=== PATIENT | female | born 1985 | race Caucasian/White ===

== ENCOUNTER 2017-10-04 02:25 | Inpatient (IN) | payer MEDICAID ==
[2017-10-04] VITALS (10 sets, daily range): BP systolic 98–112; BP diastolic 56–69; PULSE 75–99; RESP 16; TEMP 97.9–99.9; O2SAT 98–100
[~2017-10-04 02:25] MED LIST: APIX5TAB PO; METF500T PO; METO25TA3 PO; OMEP40CA2 PO; SERT-129 PO
[2017-10-04] MEDS ORDERED: SODIUM CHLOR 0.9% 250 ML INJ 250 ML IV ONE (03:15)
[2017-10-04] MEDS ORDERED: LACTULOSE SYRUP 20 GM/30 ML CUP PO PRN (03:15)
[2017-10-04] MEDS ORDERED: MAGNESIUM HYDROXIDE SUSP 30 ML CUP PO PRN (03:15)
[2017-10-04] MEDS ORDERED: BISACODYL 10 MG SUPP RECTAL PRN (03:15)
[2017-10-04] MEDS ORDERED: NALOXONE HCL 0.4 MG/ML AMP IV PUSH PRN (03:15)
[2017-10-04] MEDS ORDERED: SENNOSIDES 8.6 MG TAB PO PRN (03:15)
[2017-10-04] MEDS ORDERED: SODIUM CHLORIDE 0.9% FLUSH 10 ML FLUSH IV FLUSH PRN (03:15)
[2017-10-04] MEDS ORDERED: ACETAMINOPHEN 325 MG TAB PO PRN (03:15)
[2017-10-04] MEDS ORDERED: ONDANSETRON ODT 4 MG TAB PO PRN (03:15)
[2017-10-04] MEDS ORDERED: DEXTROSE 50% IN WATER 50 ML VIAL(D50) IV PUSH PRN (03:30)
[2017-10-04] MEDS ORDERED: GLUCAGON 1 MG/ML VIAL OTHER PRN (03:30)
[2017-10-04] MEDS: ACETAMINOPHEN/HYDROcodone 325 MG/5 MG TAB PO PRN ×4 (03:49→20:10)
--- NOTE | 2017-10-04 04:09 | HHI.HP ---
HPI Service [facility] Primary Care Physician Luis Jaeger D.O. Admission Diagnosis Diagnoses: Chief Complaint: anemia Travel History International Travel<30 Days: No Contact w/Intl Traveler <30 Da: No History of Present Illness 32 y/o female with a history of anemia, anxiety, depression, pcos, pe (on eliquis), and irregular heart rate presented with anemia with blood clots since September 10. Patient states on September 10 she was diagnosed with bilateral PEs and was placed on Eliquis. She states at this time she also began her menstrual cycle and has continued to pass large clots. She last seen her lithographic plate maker on Thursday and received an iron transfusion for hgb of 9. She was seen by a cheesemaking laborer 2 weeks ago who started her on depo provera to help the bleeding, but she states there has been no change. She is complaining of associated shortness of breath at times, and cramping abdominal pain when she passes the clots. Denies any chest pain. Last pap was in May and she reports normal, denies any history of uterine fibroids. Both lithographic plate maker and cheesemaking laborer physicians are in [place]. DR. Olsen: [place] oncology Dr. Kiser PERSONAL CARE ATTENDANT Review of Systems Except as stated in HPI: all other systems reviewed are Neg Past Family Social History Past Medical History iron deficiency anemia PCOS irregular heart rate anxiety Depression Past Surgical History Tubal R 5th digit tendon repair C section x 2 Reported Medications Reported Meds & Active Scripts Active Reported Metoprolol Tartrate 25 Mg Tab 12.5 Mg PO BID Sertraline (Sertraline HCl) 100 Mg Tab 100 Mg PO DAILY Omeprazole 40 Mg Cap 40 Mg PO DAILY Metformin (Metformin HCl) 500 Mg Tab 500 Mg PO DAILY With a meal Eliquis (Apixaban) 5 Mg Tab 5 Mg PO BID Allergies: Coded Allergies: No Known Allergies (Unverified , 10/04/17) Active Ordered Medications Current Medications Medications (Trade) Dose Ordered Sig/Sharath Route Start Time Stop Time Status Last Admin (NS Flush) 2 ml UNSCH PRN IV FLUSH 10/04/17 03:15 (NS Flush) 2 ml BID IV FLUSH 10/04/17 09:00 (Tylenol) 650 mg Q4H PRN PO 10/04/17 03:15 (Zofran Odt) 4 mg Q6H PRN PO 10/04/17 03:15 (Narcan Inj) 0.4 mg UNSCH PRN IV PUSH 10/04/17 03:15 (Milk Of Magnesia Liq) 30 ml Q12H PRN PO 10/04/17 03:15 (Senokot) 17.2 mg Q12H PRN PO 10/04/17 03:15 (Dulcolax Supp) 10 mg DAILY PRN RECTAL 10/04/17 03:15 (Lactulose Liq) 30 ml DAILY PRN PO 10/04/17 03:15 Sodium Chloride 250 ml @ 15 mls/hr ONCE ONCE IV 10/04/17 03:15 10/04/17 19:54 ([place] 5-325 Mg) 1 tab Q4H PRN PO 10/04/17 03:15 10/04/17 03:49 (D50w (Vial) Inj) 50 ml UNSCH PRN IV PUSH 10/04/17 03:30 (Glucagon Inj) 1 mg UNSCH PRN OTHER 10/04/17 03:30 (NovoLOG SUPPLEMENTAL SCALE) 1 ACHS SLIDING SCALE SQ 10/04/17 08:00 Family History Grandma: Leukemia Social History Tobacco use: 1/2 PPD Alcohol use: occasionally Physical Exam Physical Exam GENERAL: This is a well-nourished, well-developed patient, in no apparent distress. SKIN: No rashes, ecchymoses or lesions. Cool and dry. HEAD: Atraumatic. Normocephalic. EYES: Pupils equal round and reactive. . CARDIOVASCULAR: Regular rate and rhythm without murmurs, gallops, or rubs. RESPIRATORY: Clear to auscultation. Breath sounds equal bilaterally. No wheezes , rales, or rhonchi. GASTROINTESTINAL: Abdomen soft, tender, nondistended. MUSCULOSKELETAL: Extremities without clubbing, cyanosis, or edema. No joint tenderness, effusion, or edema noted. NEUROLOGICAL: Awake and alert. Motor and sensory grossly within normal limits.Normal speech. Caprini VTE Risk Assessment Caprini VTE Risk Assessment: Mod/High Risk (score >= 2) Caprini Risk Assessment Model Point Value = 1 Point Value = 2 Point Value = 3 Point Value = 5 Age 41-60 Minor surgery BMI > 25 kg/m2 Swollen legs Varicose veins or History of unexplained or recurrent spontaneous Oral contraceptives or hormone replacement Sepsis (< 1 month) Serious lung disease, including pneumonia (< 1 month) Abnormal pulmonary function Acute myocardial infarction Congestive heart failure (< 1 month) History of inflammatory bowel disease Medical patient at bed rest Age 61-74 Arthroscopic surgery Major open surgery (> 45 min) Laparoscopic surgery (> 45 min) Malignancy Confined to bed (> 72 hours) Immobilizing plaster cast Central venous access Age >= 75 History of VTE Family history of VTE Factor V Leiden Prothrombin [id number] Lupus anticoagulant Anticardiolipin antibodies Elevated serum homocysteine Heparin-induced thrombocytopenia Other congenital or acquired thrombophilia Stroke (< 1 month) Elective arthroplasty Hip, pelvis, or leg fracture Acute spinal cord injury (< 1 month) Prophylaxis Regimen Total Risk Factor Score Risk Level Prophylaxis Regimen 0-1 Low Early ambulation 2 Moderate Order ONE of the following: *Sequential Compression Device (SCD) *Heparin 5000 units SQ BID 3-4 Higher Order ONE of the following medications: *Heparin 5000 units SQ TID *Enoxaparin/Lovenox 40 mg SQ daily (WT < 150 kg, CrCl > 30 mL/min) *Enoxaparin/Lovenox 30 mg SQ daily (WT < 150 kg, CrCl > 10-29 mL/min) *Enoxaparin/Lovenox 30 mg SQ BID (WT < 150 kg, CrCl > 30 mL/min) AND/OR *Sequential Compression Device (SCD) 5 or more Highest Order ONE of the following medications: *Heparin 5000 units SQ TID (Preferred with Epidurals) *Enoxaparin/Lovenox 40 mg SQ daily (WT < 150 kg, CrCl > 30 mL/min) *Enoxaparin/Lovenox 30 mg SQ daily (WT < 150 kg, CrCl > 10-29 mL/min) *Enoxaparin/Lovenox 30 mg SQ BID (WT < 150 kg, CrCl > 30 mL/min) AND *Sequential Compression Device (SCD) Assessment and Plan Problem List: (1) Irregular heart rhythm ICD Code: I49.9 - Cardiac arrhythmia, unspecified (2) Symptomatic anemia ICD Code: D64.9 - Anemia, unspecified Assessment and Plan 32 y/o female with a history of anemia, anxiety, depression, pcos, pe (on eliquis), and irregular heart rate presented with anemia with blood clots since September 10. Symptomatic anemia likely due to heavy menstrual cycles ?fibroids HGB 6.8 -Transfuse 2 units PRBCs -Consult cheesemaking laborer for recommendations -CBC post transfusion -[place] for pain PE history -Consult hematology -Hold eliquis until seen by hematology Arrhythmia, chronic -Resume home metoprolol -Monitor telemetry DVT prophylaxis: SCDs Discussed Condition With Patient and RN Physician Certification 2 Midnight Certification Type: Admission for Inpatient Services Order for Inpatient Services The services are ordered in accordance with Medicare regulations or non- Medicare payer requirements, as applicable. In the case of services not specified as inpatient-only, they are appropriately provided as inpatient services in accordance with the 2-midnight benchmark. Estimated LOS (days): 2 days is the estimated time the patient will need to remain in the hospital, assuming treatment plan goals are met and no additional complications. Post-Hospital Plan: Joslyn Alanis October 04, 2017 04:09
[2017-10-04 05:56] LABS: AUTOMATED NEUTROPHIL # 1.2 TH/MM3 (1.8-7.7); BASOPHIL % 1.2 % (0.0-2.0); EOSINOPHIL # 0.1 TH/MM3 (0-0.4); EOSINOPHIL % 3.1 % (0.0-4.0); LYMPH % 45.2 % (9.0-44.0); LYMPHOCYTE # 1.4 TH/MM3 (1.0-4.8); MEAN CELL VOLUME 76.4 FL (80.0-100.0); MEAN CORPUSCULAR HEMOGLOBIN 24.6 PG (27.0-34.0); MEAN CORPUSCULAR HGB CONC 32.2 % (32.0-36.0); MEAN PLATELET VOLUME 9.2 FL (7.0-11.0); MONO % 11.5 % (0.0-8.0); MONOCYTE # 0.4 TH/MM3 (0-0.9); PLATELET COUNT 220 TH/MM3 (150-450); RED BLOOD COUNT 2.55 MIL/MM3 (4.00-5.30); RED CELL DISTRIBUTION WIDTH 36.6 % (11.6-17.2); WHITE BLOOD COUNT 3.1 TH/MM3 (4.0-11.0)
[2017-10-04 06:04] LABS: HEMATOCRIT 19.5 % (35.0-46.0); HEMOGLOBIN 6.3 GM/DL (11.6-15.3)
[2017-10-04 06:27] LABS: BICARBONATE 21.5 MEQ/L (21.0-32.0); CREATININE 0.76 MG/DL (0.50-1.00)
[2017-10-04] MEDS ORDERED: INSULIN ASPART SUPPLEMENTAL SCALE SQ SCH (08:00)
--- NOTE | 2017-10-04 08:01 | PD.CONS ---
HPI Chief Complaint Vaginal bleeding, anemia Travel History International Travel<30 Days: No Contact w/Intl Traveler<30Days: No History of Present Illness HPI 32 y/o [id number] with a history of anemia, anxiety, depression, PCOS, PE (on eliquis ), and irregular heart rate presented to the ED with anemia and passing large blood clots since September 10. Patient states on September 10 she was diagnosed with bilateral PEs and was placed on Eliquis. She states at this time she also began her menstrual cycle and has continued to pass large clots. She was placed on OCPs about a year ago without improvement in her bleeding; she saw her buggy ladle tender on 09/03/17 and was given a DepoProver injection to help her bleeding, but has had no improvement. She last seen her high scaler on 09/30/17 and received an iron transfusion for hgb of 9. At presentation to the ED, she was complaining of associated shortness of breath at times, and cramping abdominal pain when she passes the clots. She also reports she has been feeling weak and fatigued. At this time she denies any chest pain, SOB, or other complaints. Last pap was in May and she reports normal, denies any history of uterine fibroids. Both high scaler and product architect physicians are in [place]. She reports that during a typical menses she saturates about 12 pads a day and bleedis too heavily to use a tampon. She reports that the bleeding is so heavy it pushes the tampon out. She reports that her bleeding has been even heavier since September 10. DR. Olsen: [place] oncology Dr. Kiser REHABILITATION DIRECTOR Para: 5 : 5 History Past Medical History Narrative Medical Iron deficiency anemia PCO S Irregular heart rate Anxiety Depression PE Menorrhagia Obstetric History Obstetric History 005 5 Menarche started H 12, menses continue to be irregular Menses last 5-7 days and are heavy The patient denies any STDs. The patient has a history of abnormal Paps which were positive for HPV however have been normal for greater than 10 years. Past Surgical History Narrative Surgical delivery 2 Bilateral tubal ligation with second delivery Right fifth digit tendon repair Family History Narrative Family History Leukemia Social History Alcohol Use: No Tobacco Use: Yes Substance Abuse: No Allergies-Medications (Allergen,Severity, Reaction): Coded Allergies: No Known Allergies (Unverified , 10/04/17) Home Meds Reported Medications Metoprolol Tartrate (Metoprolol Tartrate) 25 Mg Tab, 12.5 MG PO BID, #60 TAB 0 Refills 10/04/17 Sertraline (Sertraline) 100 Mg Tab, 100 MG PO DAILY, #30 TAB 0 Refills 10/04/17 Omeprazole (Omeprazole) 40 Mg Cap, 40 MG PO DAILY, #30 CAP 0 Refills 10/04/17 Metformin (Metformin) 500 Mg Tab, 500 MG PO DAILY for Blood Sugar Management, # 30 TAB 0 Refills With a meal 10/04/17 Apixaban (Eliquis) 5 Mg Tab, 5 MG PO BID for Blood Clot Prevention, #60 TAB 0 Refills 10/04/17 Review of Systems Except as stated in HPI: all other systems reviewed are Neg Physical Exam Vital Signs Date Time Temp Pulse Resp B/P (MAP) Pulse Ox O2 Delivery O2 Flow Rate FiO2 10/04/17 04:52 91 10/04/17 04:30 98.4 96 16 104/69 (81) 100 Narrative GENERAL: Well-nourished, well-developed patient. SKIN: Warm and dry. HEAD: Normocephalic and atraumatic. EYES: No scleral icterus. No injection or drainage. ENT: No nasal drainage noted. Mucous membranes pink. Airway patent. NECK: Supple, trachea midline. No JVD. CARDIOVASCULAR: Regular rate and rhythm without murmurs, gallops, or rubs. RESPIRATORY: Breath sounds equal bilaterally. No accessory muscle use. BREASTS: Deferred ABDOMEN/GI: Abdomen soft, non-tender, bowel sounds present, no rebound, no guarding GENITOURINARY: External Genitalia: intact and normal in appearance. Normal BUS. Speculum examination was performed and revealed a grossly normal-appearing cervix with grossly normal appearing rugated. There was no active bleeding noted, and no blood in the vault with just a trace of blood along the vaginal sidewalls as would be typical during menses. Bimanual examination revealed approximately 10 week size uterus with no adnexal masses or tenderness noted. There is no appreciable uterine tenderness. There is no cervical or vaginal masses. EXTREMITIES: No cyanosis or edema. BACK: Nontender without obvious deformity. NEUROLOGICAL: Awake and alert. Motor and sensory grossly within normal limits. Normal speech. Psychiatric: Grossly normal memory and affect Musculoskeletal: Grossly normal range of motion, gait, muscle strength Data Data Orders Orders Admit To Inpatient (10/04/17 ) Vital Signs (Adult) Q4H (10/04/17 03:11) Activity Oob Ad Dina (10/04/17 03:11) Vendor Management Specialist / Telemetry .CONTINUOUS (10/04/17 03:11) Intake + Output WALLY.QSHIFT (10/04/17 03:11) Sodium Chloride 0.9% Flush (Ns Flush) (10/04/17 03:15) Sodium Chloride 0.9% Flush (Ns Flush) (10/04/17 09:00) Acetaminophen (Tylenol) (10/04/17 03:15) Basic Metabolic Panel (Bmp) (10/04/17 06:00) Complete Blood Count With Diff (10/04/17 06:00) Case Management Consult (10/04/17 03:11) Scd Bilateral/Knee High WALLY.BID (10/04/17 03:11) Naloxone Inj (Narcan Inj) (10/04/17 03:15) Magnesium Hydroxide Liq (Milk Of Magnesi (10/04/17 03:15) Sennosides (Senokot) (10/04/17 03:15) Bisacodyl Supp (Dulcolax Supp) (10/04/17 03:15) Lactulose Liq (Lactulose Liq) (10/04/17 03:15) Inpatient Certification (10/04/17 ) Red Blood Cells (Rbc) (10/04/17 03:11) Blood Product Administration .UPON TRANSFUSION (10/04/17 03:11) Instruction (10/04/17 03:11) Sodium Chlor 0.9% 250 Ml Inj (Ns 250 Ml (10/04/17 03:15) Type And Screen (10/04/17 03:11) Acetamin-Hydrocod 325-5 Mg ([place] 5-325 (10/04/17 03:15) Dextrose 50% In Camilo (Vial) Inj (D50w (Vi (10/04/17 03:30) Glucagon Inj (Glucagon Inj) (10/04/17 03:30) Insulin Aspart Supplemtl Scale (Novolog (10/04/17 08:00) Ondansetron Odt (Zofran Odt) (10/04/17 03:15) Sleeve, Knee Sequential Durga Pr (10/04/17 03:40) Consult Gynecology (10/04/17 ) Consult Hematology (10/04/17 ) Diet Regular Basic (10/04/17 Breakfast) Metoprolol Tartrate (Lopressor) (10/04/17 09:00) Sertraline (Zoloft) (10/04/17 09:00) Pantoprazole (Protonix) (10/04/17 09:00) (Hub Use Only)Inp Phy Cons/Ref (10/04/17 ) (Hub Use Only)Inp Phy Cons/Ref (10/04/17 ) Physician Name Changes (10/04/17 ) Ferritin (10/04/17 07:13) Iron/Tibc Profile (10/04/17 07:13) Labs Laboratory Tests Test 10/04/17 05:32 White Blood Count 3.1 Red Blood Count 2.55 Hemoglobin 6.3 Hematocrit 19.5 Mean Corpuscular Volume 76.4 Mean Corpuscular Hemoglobin 24.6 Mean Corpuscular Hemoglobin Concent 32.2 Red Cell Distribution Width 36.6 Platelet Count 220 Mean Platelet Volume 9.2 Neutrophils (%) (Auto) 39.0 Lymphocytes (%) (Auto) 45.2 Monocytes (%) (Auto) 11.5 Eosinophils (%) (Auto) 3.1 Basophils (%) (Auto) 1.2 Neutrophils # (Auto) 1.2 Lymphocytes # (Auto) 1.4 Monocytes # (Auto) 0.4 Eosinophils # (Auto) 0.1 Basophils # (Auto) 0.0 CBC Comment AUTO DIFF Blood Urea Nitrogen 9 Creatinine 0.76 Random Glucose 98 Calcium Level 8.0 Sodium Level 141 Potassium Level 3.3 Chloride Level 108 Carbon Dioxide Level 21.5 Anion Gap 12 Estimat Glomerular Filtration Rate 88 MDM Plan Assessment/plan: 1. Menometrorrhagia with symptomatic anemia: patient was admitted for transfusion and further evaluation. The patient has a history of menorrhagia and has now been bleeding since her last menses onset as reported on September 10. The patient's typical menorrhagia has likely been intensified by the use of Eliquis for her bilateral PEs. Will obtain pelvic/transvaginal ultrasound to further assess for uterine abnormalities. She reports she is not having much bleeding this morning, but the Eliguis has been held for now. Had a lengthy discussion with the patient about management of metromenorrhagia which may result in a hysterectomy in the future if her bleeding remains difficult to manage. We discussed use of Depo-Provera which she received on 09/03 which in some cases will stop menses altogether, however some patients do report prolonged and continued bleeding with the use of this medication. We also discussed the use of oral progesterones to ameliorate her bleeding as well as the use of Lysteda or tranexamic acid. The dose of Lysteda is 650 mg 2 tablets p.o. every 8 hours for 5 days. The risk of thromboembolic events is controversial with Lysteda although this medication has been used widespread and apparently without concern in [place] for years. In a patient with a long history of menorrhagia, tranexamic acid would typically be a good option for consideration. In addition, there are various regimens of progesterone (either Megace or Provera) that are recommended in the literature. Some options for management of acute bleeding in the literature include 10-20 mg 2 times daily for 5-10 days or as an alternative regimen Provera 20 mg p.o. 3 times daily for 7 days then 20 mg per day for up to an additional 21 days. An alternative is Megace 20-60 mg twice daily. While progesterones alone are often used in patients with or at risk for thromboembolic events and typically without any increase in incidence of thromboembolic events or other related adverse outcomes , there are labeling warnings regarding use in patients with history or active thromboembolic disease/events. I discussed this at length with the patient. I discussed that both of these categories of medications (tranexamic acid and progesterone) are labeled as a risk/contraindication in patients with PE and other thromboembolic events, however are often used and typically without adverse events. In addition, there are risks associated with continued heavy bleeding, as well as risks associated with receiving multiple blood transfusions. Furthermore, if the patient is anticoagulated, this would likely ameliorate the minimal or small potential for risk if any. Discussed that estrogen containing medications would be absolutely contraindicated, and are not recommended at this time. The patient is not actively bleeding at this time , so would like to discuss potential treatment regimens with the patient's high scaler prior to initiating therapy with her history of an active, recently diagnosed PE. Will follow-up after transvaginal ultrasound and hematology consult. 2. PE: Patient is diagnosed with a PE on September 10 and placed on Eliquis. Eliquis has been held until further evaluation by her high scaler 3. Tobacco use: The patient was advised to discontinue use of tobacco Thank you for the consult on this very pleasant lady, will follow us after US and hematology consult, please call if other questions or concerns in the meantime or if heavy bleeding resumes. Daniela Morfin MD October 04, 2017 08:01
[2017-10-04] MEDS: SERTRALINE HCL 100 MG TAB PO SCH (08:29)
[2017-10-04] MEDS: PANTOPRAZOLE SOD 40 MG DELAYED RELEASE TAB PO SCH (08:30)
[2017-10-04] MEDS: SODIUM CHLORIDE 0.9% FLUSH 10 ML FLUSH IV FLUSH SCH ×2 (08:30→20:06)
[2017-10-04] MEDS: METOPROLOL TARTRATE 25 MG TAB PO SCH ×2 (08:30→20:05)
[2017-10-04 09:17] LABS: % SATURATION IRON PROFILE 5.9 % (20-50); IRON (FE) 18 MCG/DL (50-170); TOTAL IRON BINDING CAPACITY 305 MCG/DL (250-450)
[2017-10-04 09:20] LABS: FERRITIN 122 NG/ML (8-252)
[2017-10-04 10:33] LABS: OVALOCYTES 1+ (NORMAL)
--- NOTE | 2017-10-04 13:08 | RADRPT ---
EXAM DATE/TIME: 10/04/2017 12:06 [facility] COMPARISON: No previous studies available for comparison. INDICATIONS : Menometrerrhagia. MEDICAL HISTORY : Gastroesophageal reflux disease. Anticoagulant therapy. Pulmonary embolism. Polycystic ovarian sy ndrome. Depression. Anxiety. SURGICAL HISTORY : Tubal ligation. section. Right hand tendon repair. ENCOUNTER: Initial ACUITY: 1 month PAIN SCORE: 3/10 LOCATION: Bilateral pelvis MEASUREMENTS: UTERUS: 8.7 x 5.5 x 6.7 cm ENDOMETRIAL STRIPE: 19 mm RIGHT OVARY: 4.7 x 2.6 x 2.7 cm LEFT OVARY: 3.7 x 1.5 x 1.9 cm FINDINGS: UTERUS: Endometrium is mildly inhomogeneous. Thickness is appropriate the 32 year-old. RIGHT OVARY: Ovary contains no mass or significant cystic lesion. LEFT OVARY: Ovary contains no mass or significant cystic lesion. MISCELLANEOUS: No free fluid. CONCLUSION: Inhomogeneous endometrium, otherwise negative Mahesh Nieto MD FACR on October 04, 2017 at 13:04 Board Certified Radiologist. This report was verified electronically.
[2017-10-04] MEDS ORDERED: IRON SUCROSE 100 MG/5 ML VIAL IV PUSH ONE (17:45)
[2017-10-04 18:56] LABS: HEMATOCRIT 25.7 % (35.0-46.0); HEMOGLOBIN 8.5 GM/DL (11.6-15.3)
[2017-10-04] MEDS ORDERED: IRON SUCROSE INJ 300 MG in SODIUM CHLORIDE 0.9% INJ 100 ML IV ONE (19:00)
[2017-10-04] MEDS: APIXABAN 2.5 MG TABLET PO SCH (20:06)
[2017-10-04] MEDS ORDERED: ACETAMINOPHEN/HYDROcodone 325 MG/5 MG TAB PO ONE (23:30)
[2017-10-05] VITALS (9 sets, daily range): BP systolic 92–104; BP diastolic 51–59; PULSE 62–83; RESP 16–20; TEMP 97.8–98.6; O2SAT 99–100
[2017-10-05] MEDS: ACETAMINOPHEN/HYDROcodone 325 MG/5 MG TAB PO PRN ×4 (00:05→23:28)
[2017-10-05 05:51] LABS: HEMATOCRIT 24.5 % (35.0-46.0); HEMOGLOBIN 8.4 GM/DL (11.6-15.3); MEAN CELL VOLUME 77.7 FL (80.0-100.0); MEAN CORPUSCULAR HEMOGLOBIN 26.7 PG (27.0-34.0); MEAN CORPUSCULAR HGB CONC 34.4 % (32.0-36.0); MEAN PLATELET VOLUME 8.9 FL (7.0-11.0); PLATELET COUNT 197 TH/MM3 (150-450); RED BLOOD COUNT 3.16 MIL/MM3 (4.00-5.30); WHITE BLOOD COUNT 3.2 TH/MM3 (4.0-11.0)
[2017-10-05 06:22] LABS: BICARBONATE 25.4 MEQ/L (21.0-32.0); CALCIUM 7.8 MG/DL (8.5-10.1); CREATININE 0.64 MG/DL (0.50-1.00)
[2017-10-05] MEDS: PANTOPRAZOLE SOD 40 MG DELAYED RELEASE TAB PO SCH (08:01)
[2017-10-05] MEDS: APIXABAN 2.5 MG TABLET PO SCH ×2 (08:02→19:36)
[2017-10-05] MEDS: SERTRALINE HCL 100 MG TAB PO SCH (08:02)
[2017-10-05] MEDS: SODIUM CHLORIDE 0.9% FLUSH 10 ML FLUSH IV FLUSH SCH ×2 (08:06→21:00)
[2017-10-05] MEDS: METOPROLOL TARTRATE 25 MG TAB PO SCH ×2 (08:09→19:36)
--- NOTE | 2017-10-05 09:18 | HHI.PR ---
GEODETIC SURVEY DIRECTOR Note Note Patient seen and examined this morning at bedside. Patient report that the vaginal bleeding has improved, she has used about 12 pads in the past 24hrs. She describes the bleeding as if she has her "period" but not more large clots. Patient reports that heme/onc recommended reduction of her eliquis dose and she is currently thinking of obtaining IUD to aid with reducing bleeding. For recommendations on addressing pt's menometrorrhagia please refer to Dr. Morfin note on 10/04. Patient is doing well this morning with improvement in vaginal bleeding. Options for endometrial ablation vs IUD to help reduce bleed were discussed with patient. -will continue to monitor -If pt's vaginal bleeding remains stable will hold off endometrial ablation or hysterectomy while pt is on anticoagulation. [facility] hospitalist Alfredo Taylor MD, R1 October 05, 2017 09:18
--- NOTE | 2017-10-05 10:39 | HHI.PR ---
Subjective Remarks No active chest pain or shortness of breath. Reports continued vaginal bleeding however has decreased frequency since admission. Objective Vitals Vital Signs Date Time Temp Pulse Resp B/P (MAP) Pulse Ox O2 Delivery O2 Flow Rate FiO2 10/05/17 09:02 18 10/05/17 07:41 98.6 76 18 95/51 (66) 99 10/05/17 04:25 98.0 77 16 97/53 (68) 99 10/05/17 04:00 81 10/05/17 00:40 98.2 65 17 95/58 (70) 100 10/05/17 00:00 62 10/04/17 20:08 99.9 99 16 102/59 (73) 98 10/04/17 20:00 79 10/04/17 16:00 98.2 76 16 112/62 (79) 100 10/04/17 13:26 98.8 88 16 101/59 99 10/04/17 13:06 98.6 79 16 101/58 100 I/O 10/04/17 10/04/17 10/04/17 10/05/17 10/05/17 10/05/17 07:00 15:00 23:00 07:00 15:00 23:00 Intake Total 360 ml 400 ml 400 ml 480 ml Balance 360 ml 400 ml 400 ml 480 ml Intake Oral 360 ml 480 ml Packed Cells 400 ml 400 ml # Voids 1 4 # Bowel Movements 0 1 0 # Sanitary Pads 1 Pads Result Diagram: 10/05/17 0522 10/05/17 0522 Objective Remarks GENERAL: This is a well-nourished, well-developed patient, in no apparent distress. CARDIOVASCULAR: Regular rate and rhythm RESPIRATORY: Clear to auscultation. Breath sounds equal bilaterally. No wheezes , rales, or rhonchi. GASTROINTESTINAL: Abdomen soft, non-tender, nondistended. Normal active bowel sounds MUSCULOSKELETAL: Extremities without clubbing, cyanosis, or edema. NEURO: Alert & Oriented x4 to person, place, time, situation. Moves all ext x4 A/P Problem List: (1) Symptomatic anemia ICD Code: D64.9 - Anemia, unspecified Status: Acute (2) Pulmonary embolism ICD Code: I26.99 - Other pulmonary embolism without acute cor pulmonale Status: Chronic Assessment and Plan 32 y/o female with a history of anemia, anxiety, depression, pcos, pe (on eliquis), and irregular heart rate presented with anemia with blood clots since September 10. Symptomatic anemia likely due to heavy menstrual cycles/menorrhagia HGB 6.8 -Transfuse 2 units PRBCs with hemoglobin stable at 8.4 today -repeat hemoglobin the morning due to patient's continuing menorrhagia. Appreciate TEST ENG recommendations. PE history -Consult hematology who recommended decreasing the Eliquis dose. - Continue to monitor hemoglobin while on anticoagulation. DVT prophylaxis: SCDs, on Eliquis Problem Qualifiers (1) Pulmonary embolism: Qualified Codes: I27.82 - Chronic pulmonary embolism Barb Russell MD October 05, 2017 10:39
--- NOTE | 2017-10-05 12:43 | MB ---
cc: Turner Brock MD DATE: 10/04/2017 REASON FOR CONSULTATION: Consult requested by hospitalist for evaluation of pulmonary embolism in a patient who has menorrhagia since she was started on Eliquis about a month ago. HISTORY OF PRESENT ILLNESS: This is a 32-year-old pleasant white female. She is a CORPORATE TREASURER. She has a history of menorrhagia for quite some time. She was on control pills up until July, it was switched over to the Depo-Provera since it was not working to slow down her menses. Ten days after receiving the Depo-Provera, she was admitted to [facility] for bilateral pulmonary embolism. She was started on Eliquis and was discharged to home. She is under the care of gambling monitor, ____. The patient stated that she had received iron infusion for the iron deficiency anemia. Since she has been on Eliquis, she continues to have heavy menses, which has not stopped for almost a month now. She decided to come to the emergency room as she was complaining of weakness, tiredness, fatigue and dizziness. The blood workup revealed severe anemia. Eliquis was held. X RAY OPERATOR and Hematology have been consulted for further evaluation. REVIEW OF SYSTEMS: The patient denies any previous history of fibroid uterus. She denies any history of bleeding except heavy menses. She has a history of polycystic ovarian syndrome, depression, anxiety, iron deficiency anemia. The rest of the review of systems is negative. PAST MEDICAL HISTORY: 1. Iron deficiency anemia due to menorrhagia. 2. Severe menorrhagia. 3. Polycystic ovarian syndrome. 4. Anxiety disorder. 5. Depression. PAST SURGICAL HISTORY: Tubal ligation, tendon repair of the fifth right digit, x 2. ALLERGIES: NONE. MEDICATIONS: Metoprolol, sertraline, omeprazole, metformin, Eliquis. FAMILY HISTORY: None for any malignancy or blood clots. SOCIAL HISTORY: The patient smokes cigarettes half pack a day. Counseling was done to stop smoking. Occasionally drinks alcohol. She is a CORPORATE TREASURER. PHYSICAL EXAMINATION: GENERAL: This is a well-developed, well-nourished white female in no apparent distress. VITAL SIGNS: Temperature 98.2, heart rate 76, blood pressure 112/62, O2 saturation 100%. HEAD, EYES, EARS, NOSE, AND THROAT: Pupils equal, round, reactive to light and accommodation, extraocular movements intact. Anicteric. No oral lesions noted. No thrush noted. NECK: Supple. No JVD. No masses noted. LUNGS: Clear. No wheezing, rhonchi, or rales. HEART: Regular rate and rhythm. No murmur heard. ABDOMEN: Soft and nontender. No hepatosplenomegaly. No abnormal bowel sounds. No guarding or rigidity noted. EXTREMITIES: No pedal edema. No cyanosis, no clubbing. NEUROLOGIC: Awake, alert, oriented x 3. Sensory and motor seem to be intact. SKIN: No bruises or petechiae noted. LYMPH NODES: No cervical, supraclavicular, or axillary lymphadenopathy noted. BACK: There is no spinal tenderness noted. ASSESSMENT: 1. Provoked bilateral pulmonary embolism, most likely due to the control pills for menorrhagia. 2. Menorrhagia. 3. Iron deficiency anemia from menorrhagia. PLAN: I have reviewed her available records, and I had an extensive discussion with the patient regarding the anemia, pulmonary embolism and menorrhagia. Her hemoglobin on admission was 6.3. She had received 2 units of blood transfusion. The repeat H and H is still pending. Her iron studies show serum ferritin 122, serum iron is low at 18, TIBC is high normal at 305 and iron saturation is 5.9, low. I will give her iron infusion with Venofer 300 mg IV. Patient has been evaluated by group leader semiconductor processing. She had a pelvic ultrasound which does not show any fibroid uterus. The endometrium is inhomogeneous. Otherwise, it is negative. Regarding the pulmonary embolism, she says that since she was started on Eliquis she has not stopped her periods. She is passing heavy clots. We discussed that she would need to be anticoagulated due to recent history of bilateral pulmonary embolism which was provoked from control pills. She was on 5 mg of Eliquis twice a day. We discussed two choices, either we can start her on Coumadin or decrease the dose of Eliquis to 2.5 mg twice a day. Pros and cons of each option were discussed. The patient elected to continue with the Eliquis at a lower dose at 2.5 mg twice a day. The patient stated that she has been evaluated by gynecologists in the past, who have recommended a hysterectomy. She has not been scheduled as yet. She states that she has 5 children and she does not have any desire to have more children. She is waiting for the group leader semiconductor processing to offer her hysterectomy. Further recommendations based on the hospital stay. Thank you for asking my opinion. MD JONY Thomas/COURTNEY/ , 11:51 PM , 12:51 AM MTDBess
--- NOTE | 2017-10-05 23:03 | PD.ONC.PN ---
Subjective Subjective Remarks c/o ROACH still has vaginal bleeding but slowing down. wants to go home Objective Data Date Time Temp Pulse Resp B/P (MAP) Pulse Ox O2 Delivery O2 Flow Rate FiO2 10/05/17 20:00 97.8 81 17 104/56 (72) 100 10/05/17 15:35 98.6 83 20 94/55 (68) 99 10/05/17 13:16 18 10/05/17 11:28 98.3 83 18 92/59 (70) 99 10/05/17 09:02 18 10/05/17 07:41 98.6 76 18 95/51 (66) 99 10/05/17 04:25 98.0 77 16 97/53 (68) 99 10/05/17 04:00 81 10/05/17 00:40 98.2 65 17 95/58 (70) 100 10/05/17 00:00 62 Result Diagram: 10/05/17 0522 10/05/17 0522 Laboratory Results Laboratory Tests Test 10/05/17 05:22 White Blood Count 3.2 TH/MM3 Red Blood Count 3.16 MIL/MM3 Hemoglobin 8.4 GM/DL Hematocrit 24.5 % Mean Corpuscular Volume 77.7 FL Mean Corpuscular Hemoglobin 26.7 PG Mean Corpuscular Hemoglobin Concent 34.4 % Red Cell Distribution Width 31.0 % Platelet Count 197 TH/MM3 Mean Platelet Volume 8.9 FL Blood Urea Nitrogen 8 MG/DL Creatinine 0.64 MG/DL Random Glucose 96 MG/DL Calcium Level 7.8 MG/DL Sodium Level 141 MEQ/L Potassium Level 3.6 MEQ/L Chloride Level 109 MEQ/L Carbon Dioxide Level 25.4 MEQ/L Anion Gap 7 MEQ/L Estimat Glomerular Filtration Rate 108 ML/MIN Administered Medications Medications (Trade) Dose Ordered Sig/Sharath Route PRN Reason Start Time Stop Time Status Last Admin Dose Admin Sodium Chloride (NS Flush) 2 ml BID IV FLUSH 10/04/17 09:00 10/05/17 08:06 Acetaminophen (Tylenol) 650 mg Q4H PRN PO TEMP > 100.4 10/04/17 03:15 10/05/17 12:16 Acetaminophen/ Hydrocodone Bitart (Ulster 5-325 Mg) 1 tab Q4H PRN PO pain>5 10/04/17 03:15 10/05/17 19:36 Metoprolol Tartrate (Lopressor) 12.5 mg BID PO 10/04/17 09:00 10/05/17 19:36 Sertraline HCl (Zoloft) 100 mg DAILY PO 10/04/17 09:00 10/05/17 08:02 Pantoprazole Sodium (Protonix) 40 mg DAILY PO 10/04/17 09:00 10/05/17 08:01 Apixaban (Eliquis) 2.5 mg BID PO 10/04/17 21:00 10/05/17 19:36 Objective Remarks GENERAL: Well-nourished, well-developed patient. SKIN: Warm and dry. HEAD: Normocephalic. EYES: No scleral icterus. No injection or drainage. NECK: Supple, trachea midline. No JVD or lymphadenopathy. LYMPHATIC: No adenopathy. CARDIOVASCULAR: Regular rate and rhythm without murmurs. RESPIRATORY: Breath sounds equal bilaterally. No accessory muscle use. GASTROINTESTINAL: Abdomen soft, non-tender, nondistended. EXTREMITIES: No cyanosis, or edema. NEUROLOGICAL: No obvious focal deficit. Awake, alert, and oriented x3. Assessment/Plan Problem List: (1) Pulmonary embolism ICD Codes: I26.99 - Other pulmonary embolism without acute cor pulmonale Status: Chronic Plan: continue Eliquis 2.5 mg BID (2) Symptomatic anemia ICD Codes: D64.9 - Anemia, unspecified Status: Acute Plan: This is from menorhagia s/p PRBC and Iron infusion. SHEET METAL PATTERN CUTTER to follow Problem Qualifiers (1) Pulmonary embolism: Qualified Codes: I27.82 - Chronic pulmonary embolism Ady Brock MD October 05, 2017 23:03
[2017-10-06 00:31] VITALS: BP 119/58; PULSE 75; RESP 18; TEMP 98.5; O2SAT 100
[2017-10-06 04:42] VITALS: BP 94/61; PULSE 68; RESP 18; TEMP 98.2; O2SAT 98
[2017-10-06 05:56] LABS: HEMATOCRIT 27.3 % (35.0-46.0)
[2017-10-06] MEDS: ACETAMINOPHEN/HYDROcodone 325 MG/5 MG TAB PO PRN (06:10)
[2017-10-06 07:33] VITALS: BP 108/59; PULSE 70; RESP 18; TEMP 97.8; O2SAT 100
[2017-10-06] MEDS: SERTRALINE HCL 100 MG TAB PO SCH (07:59)
[2017-10-06] MEDS: APIXABAN 2.5 MG TABLET PO SCH (08:00)
[2017-10-06] MEDS: PANTOPRAZOLE SOD 40 MG DELAYED RELEASE TAB PO SCH (08:00)
[2017-10-06] MEDS: METOPROLOL TARTRATE 25 MG TAB PO SCH (08:00)
[2017-10-06] MEDS: SODIUM CHLORIDE 0.9% FLUSH 10 ML FLUSH IV FLUSH SCH (08:01)
--- NOTE | 2017-10-06 09:26 | HHI.PR ---
Subjective Remarks Patient states she is doing well, bleeding has slowed down. She is planning IUD outpatient and has follow up appointment tomorrow with her irrigation specialist. She is ready to go home she says. No chest pain or sob. Objective Vitals Vital Signs Date Time Temp Pulse Resp B/P (MAP) Pulse Ox O2 Delivery O2 Flow Rate FiO2 10/06/17 07:33 97.8 70 18 108/59 (75) 100 10/06/17 04:42 98.2 68 18 94/61 (72) 98 10/06/17 00:31 98.5 75 18 119/58 (78) 100 10/05/17 23:13 72 10/05/17 20:00 97.8 81 17 104/56 (72) 100 10/05/17 15:35 98.6 83 20 94/55 (68) 99 10/05/17 13:16 18 10/05/17 11:28 98.3 83 18 92/59 (70) 99 I/O 10/05/17 10/05/17 10/05/17 10/06/17 10/06/17 10/06/17 07:00 15:00 23:00 07:00 15:00 23:00 Intake Total 480 ml 800 ml Output Total 5 ml Balance 480 ml 795 ml Intake Oral 480 ml 800 ml Output Urine Total 5 ml Stool Total 0 ml # Voids 4 4 # Bowel Movements 0 # Sanitary Pads 1 Pads 3 Pads Result Diagram: 10/06/17 0530 10/05/17 0522 Objective Remarks CARDIOVASCULAR: Regular rate and rhythm. RESPIRATORY: No accessory muscle use. Clear to auscultation. Breath sounds equal bilaterally. GASTROINTESTINAL: Abdomen soft, non-tender, nondistended. Hepatic and splenic margins not palpable. MUSCULOSKELETAL: Extremities without clubbing, cyanosis, or edema. No obvious deformities. NEUROLOGICAL: Awake and alert. PSYCHIATRIC: Appropriate mood and affect; insight and judgment normal. Urinary Catheter: No Vascular Central Line Catheter: No A/P Problem List: (1) Symptomatic anemia ICD Code: D64.9 - Anemia, unspecified Status: Acute (2) Pulmonary embolism ICD Code: I26.99 - Other pulmonary embolism without acute cor pulmonale Status: Chronic Assessment and Plan 32 y/o female with a history of anemia, anxiety, depression, pcos, pe (on eliquis), and irregular heart rate presented with anemia with blood clots since September 10. Symptomatic anemia likely due to heavy menstrual cycles/menorrhagia HGB 6.8 -Hemoglobin stable at 9.0 s/p iron and prbcs -BALLOON DIPPER recommends IUD or ablation out patient PE history -Consult hematology who recommended decreasing the Eliquis dose to 2.5mg daily, follow up outpatient with hemology, patient has appointment tomorrow DVT prophylaxis: SCDs, on Eliquis Discharge Planning Today Problem Qualifiers (1) Pulmonary embolism: Qualified Codes: I27.82 - Chronic pulmonary embolism Joslyn Ordoñez October 06, 2017 09:26
[2017-10-06] MEDS ORDERED: APIX2.5T PO (09:28)
--- NOTE | 2017-10-06 09:28 | HHI.DCPOC ---
Discharge Care Plan Diagnosis: (1) Pulmonary embolism (2) Symptomatic anemia (3) Irregular heart rhythm Goals to Promote Your Health * To prevent worsening of your condition and complications * To maintain your health at the optimal level Directions to Meet Your Goals Take your medications as prescribed Follow your dietary instruction Follow activity as directed Keep your appointments as scheduled Take your immunizations and boosters as scheduled If your symptoms worsen call your PCP, if no PCP go to Urgent Care Center or Emergency Room Smoking is Dangerous to Your Health. Avoid second hand smoke Call the 24-hour hour crisis hotline for domestic abuse at Joslyn Ordoñez October 06, 2017 09:28
--- NOTE | 2017-10-06 09:32 | HHI.DS ---
Discharge Summary Admission Date October 04, 2017 at 02:35 Discharge Date: October 06, 2017 Admitting Diagnosis Anemia (1) Symptomatic anemia ICD Code: D64.9 - Anemia, unspecified Diagnosis: Principal Status: Acute (2) Pulmonary embolism ICD Code: I26.99 - Other pulmonary embolism without acute cor pulmonale Status: Chronic Procedures none Brief History - From Admission 32 y/o female with a history of anemia, anxiety, depression, pcos, pe (on eliquis), and irregular heart rate presented with anemia with blood clots since September 10. Patient states on September 10 she was diagnosed with bilateral PEs and was placed on Eliquis. She states at this time she also began her menstrual cycle and has continued to pass large clots. She last seen her cherry picker operator on Thursday and received an iron transfusion for hgb of 9. She was seen by a jewel inspector 2 weeks ago who started her on depo provera to help the bleeding, but she states there has been no change. She is complaining of associated shortness of breath at times, and cramping abdominal pain when she passes the clots. Denies any chest pain. Last pap was in May and she reports normal, denies any history of uterine fibroids. Both cherry picker operator and jewel inspector physicians are in [place]. DR. Olsen: [place] [facility] Dr. Kiser SUPERVISOR CUSTOMER COMPLAINT SERVICE CBC/BMP: 10/06/17 0530 10/05/17 0522 Significant Findings Laboratory Tests Test 10/04/17 05:32 10/04/17 18:48 10/05/17 05:22 10/06/17 05:30 White Blood Count 3.1 TH/MM3 (4.0-11.0) 3.2 TH/MM3 (4.0-11.0) Red Blood Count 2.55 MIL/MM3 (4.00-5.30) 3.16 MIL/MM3 (4.00-5.30) Hemoglobin 6.3 GM/DL (11.6-15.3) 8.5 GM/DL (11.6-15.3) 8.4 GM/DL (11.6-15.3) 9.0 GM/DL (11.6-15.3) Hematocrit 19.5 % (35.0-46.0) 25.7 % (35.0-46.0) 24.5 % (35.0-46.0) 27.3 % (35.0-46.0) Mean Corpuscular Volume 76.4 FL (80.0-100.0) 77.7 FL (80.0-100.0) Mean Corpuscular Hemoglobin 24.6 PG (27.0-34.0) 26.7 PG (27.0-34.0) Red Cell Distribution Width 36.6 % (11.6-17.2) 31.0 % (11.6-17.2) Lymphocytes (%) (Auto) 45.2 % (9.0-44.0) Monocytes (%) (Auto) 11.5 % (0.0-8.0) Neutrophils # (Auto) 1.2 TH/MM3 (1.8-7.7) Ovalocytes 1+ (NORMAL) Calcium Level 8.0 MG/DL (8.5-10.1) 7.8 MG/DL (8.5-10.1) Potassium Level 3.3 MEQ/L (3.5-5.1) Chloride Level 108 MEQ/L (98-107) 109 MEQ/L (98-107) Estimat Glomerular Filtration Rate 88 ML/MIN (>89) Iron Level 18 MCG/DL (50-170) Percent Iron Saturation 5.9 % (20-50) PE at Discharge CARDIOVASCULAR: Regular rate and rhythm. RESPIRATORY: No accessory muscle use. Clear to auscultation. Breath sounds equal bilaterally. GASTROINTESTINAL: Abdomen soft, non-tender, nondistended. Hepatic and splenic margins not palpable. MUSCULOSKELETAL: Extremities without clubbing, cyanosis, or edema. No obvious deformities. NEUROLOGICAL: Awake and alert. PSYCHIATRIC: Appropriate mood and affect; insight and judgment normal. Hospital Course 32 y/o female with a history of anemia, anxiety, depression, pcos, pe (on eliquis), and irregular heart rate presented with anemia with blood clots since September 10. Symptomatic anemia likely due to heavy menstrual cycles/menorrhagia HGB 6.8 on admission -Hemoglobin stable at 9.0 s/p iron and prbcs 2 units -Seen and examined by SUPERVISOR CUSTOMER COMPLAINT SERVICE who recommends IUD or ablation out patient, patient has decided on IUD -Vaginal bleeding improved since decrease in eliquis PE history -Consult hematology who recommended decreasing the Eliquis dose to 2.5mg BID , follow up outpatient with hemology, patient has appointment tomorrow Irregular hear beat -Patient continued on home metoprolol and was monitored on telemetry with no acute events Pt Condition on Discharge: Stable Discharge Disposition: Discharge Home Discharge Time: > 30 minutes Discharge Instructions DIET: Follow Instructions for: As Tolerated, No Restrictions Activities you can perform: Regular-No Restrictions Follow up Referrals: SHINGLE GRADER - 1 Week with Daniela Morfin MD Oncology/Hematology - 2-3 Days with Ady Brock MD PCP Follow-up - 1 Week New Medications: Apixaban (Eliquis) 2.5 Mg Tab 2.5 MG PO BID for Blood Clot Prevention for 30 Days, #60 TAB Continued Medications: Metformin (Metformin) 500 Mg Tab 500 MG PO DAILY for Blood Sugar Management, #30 TAB 0 Refills With a meal Metoprolol Tartrate (Metoprolol Tartrate) 25 Mg Tab 12.5 MG PO BID, #60 TAB 0 Refills Omeprazole (Omeprazole) 40 Mg Cap 40 MG PO DAILY, #30 CAP 0 Refills Sertraline (Sertraline) 100 Mg Tab 100 MG PO DAILY, #30 TAB 0 Refills Discontinued Medications: Apixaban (Eliquis) 5 Mg Tab 5 MG PO BID for Blood Clot Prevention, #60 TAB 0 Refills Joslyn Ordoñez October 06, 2017 09:32
== END 2017-10-06 10:54 | disposition home or self-care (01) | DRG 760 ==
LOC: NEDDLT 02:25 → N06A 02:35
PROVIDERS: ADMIT Family Medicine; ATTEND Family Medicine
PROC: 30233N1 Transfusion of Nonautologous Red Blood Cells into Peripheral Vein, Percutaneous Approach (ICD-10-PCS; principal; 2017-10-04)
DX: N92.1 Excessive and frequent menstruation with irregular cycle (principal); D68.32 Hemorrhagic disorder due to extrinsic circulating anticoagulants; I27.82 Chronic pulmonary embolism; F32.9 Major depressive disorder, single episode, unspecified; D50.0 Iron deficiency anemia secondary to blood loss (chronic); F17.210 Nicotine dependence, cigarettes, uncomplicated; E28.2 Polycystic ovarian syndrome; F41.9 Anxiety disorder, unspecified; Z79.01 Long term (current) use of anticoagulants; Z80.6 Family history of leukemia; I49.9 Cardiac arrhythmia, unspecified; T45.525A Adverse effect of antithrombotic drugs, initial encounter
CPT/HCPCS: 36430; 76856; 80048; 80053; 82728; 83540; 83550; 84702; 85014; 85018; 85025; 85027; 85610; 85730; 86850; 86900; 86901; 86920; 99291; J1756; J7050; P9016

== ENCOUNTER 2017-11-05 03:55 | Emergency (ER) | payer MEDICAID ==
[~2017-11-05] VITALS: Ht 165.1 cm; Wt 63.5 kg
[~2017-11-05 03:55] MED LIST changes: +APIX2.5T PO; -APIX5TAB PO
[2017-11-05 04:30] VITALS: BP 123/77; PULSE 90; RESP 12; TEMP 98.3; O2SAT 100
--- NOTE | 2017-11-05 04:35 | PD ---
HPI Chief Complaint: Laurent act Time Seen by Provider: 04:05 Travel History International Travel<30 days: No Contact w/Intl Traveler<30days: No Traveled to known affect area: No History of Present Illness HPI 32-year-old white female presents emergency department under Laurent act by PD. The patient had made suicidal statements to her daughter. She states that she had gotten into an argument with her significant other tonight regarding finances. She had been drinking alcohol. She states that when she drinks alcohol she typically binge drinks. She feels that she has problems with alcohol. She denies any toxic ingestions. She does smoke marijuana. She smokes tobacco as well. Patient has had a history of depression, GERD, DVT, PE , dysfunctional uterine bleeding, and PCO S. She was recently treated for severe anemia this past month and was given a blood transfusion. Patient denies any chest pain or shortness of breath. No nausea vomiting. No urinary symptoms. Patient denies any true suicidal ideation. No homicidal ideation. PFSH Past Medical History Hx Anticoagulant Therapy: Yes Arthritis: No Asthma: No Autoimmune Disease: No Anxiety: Yes Depression: Yes Heart Rhythm Problems: Yes (PVC) Cancer: No Cardiovascular Problems: Yes High Cholesterol: No Chemotherapy: No Chest Pain: No Congestive Heart Failure: No COPD: No Cerebrovascular Accident: No Diabetes: No Endocrine: No GERD: Yes Genitourinary: No Hiatal Hernia: No Immune Disorder: No Kidney Stones: No Musculoskeletal: Yes Neurologic: Yes Psychiatric: Yes Reproductive: Yes (PCOS) Respiratory: Yes (PE) Migraines: Yes Radiation Therapy: No Renal Failure: No Seizures: No Sickle Cell Disease: No Sleep Apnea: No Thyroid Disease: No Ulcer: No Ovarian Cysts: Yes (PCOS) Tubal Ligation: Yes Past Surgical History Abdominal Surgery: No AICD: No Arteriovenous Shunt: No Body Medical Devices: MARKER IN RIGHT BREAST Cardiac Surgery: No Section: Yes (2X) Ear Surgery: No Endocrine Surgery: No Eye Surgery: No Genitourinary Surgery: No Gynecologic Surgery: Yes (, TUBAL LIGATION) Insulin Pump: No Joint Replacement: No Oral Surgery: No Pacemaker: No Thoracic Surgery: No Social History Alcohol Use: No Tobacco Use: Yes Substance Use: Yes (MARIJUANA) Allergies-Medications (Allergen,Severity, Reaction): Coded Allergies: No Known Allergies (Unverified , 11/05/17) Reported Meds & Prescriptions Reported Meds & Active Scripts Active Eliquis (Apixaban) 2.5 Mg Tab 2.5 Mg PO BID 30 Days Reported Metoprolol Tartrate 25 Mg Tab 12.5 Mg PO BID Sertraline (Sertraline HCl) 100 Mg Tab 100 Mg PO DAILY Omeprazole 40 Mg Cap 40 Mg PO DAILY Metformin (Metformin HCl) 500 Mg Tab 500 Mg PO DAILY With a meal Review of Systems General / Constitutional: No: Fever Eyes: No: Visual changes HENT: No: Headaches Cardiovascular: No: Chest Pain or Discomfort Respiratory: No: Shortness of Breath Gastrointestinal: No: Abdominal Pain Genitourinary: No: Dysuria, Hematuria Musculoskeletal: No: Pain Skin: Positive Rash Neurologic: No: Weakness Psychiatric: No: Depression Endocrine: No: Polydipsia Hematologic/Lymphatic: No: Easy Bruising Physical Exam Narrative GENERAL: Well-nourished, well-developed patient. SKIN: Warm and dry. HEAD: Normocephalic and atraumatic. EYES: No scleral icterus. No injection or drainage. ENT: No nasal drainage noted. Mucous membranes pink. Airway patent. NECK: Supple, trachea midline. Moves head freely without obvious discomfort. CARDIOVASCULAR: Regular rate and rhythm without murmurs, gallops, or rubs. RESPIRATORY: Breath sounds equal bilaterally. No accessory muscle use. GASTROINTESTINAL: Abdomen soft, non-tender, nondistended. EXTREMITIES: No cyanosis or edema. BACK: Nontender without obvious deformity. No CVA tenderness. NEURO: Patient is alert and oriented. no sensorimotor deficits. Nonfocal. Normal speech. PSYCH: No delusions. No auditory or visual hallucinations. Data Data Last Documented VS Vital Signs Date Time Temp Pulse Resp B/P (MAP) Pulse Ox O2 Delivery O2 Flow Rate FiO2 11/05/17 18:09 86 18 106/71 (83) 99 Room Air 11/05/17 07:50 98.5 Orders Orders Complete Blood Count With Diff (11/05/17 04:07) Comprehensive Metabolic Panel (11/05/17 04:07) Thyroid Stimulating Hormone (11/05/17 04:07) Ed Urine Pregnancytest Poc (11/05/17 04:07) Psych Screen (11/05/17 04:07) Drug Screen, Random Urine (11/05/17 04:07) Alcohol (Ethanol) (11/05/17 04:07) Diet Regular Basic (11/05/17 Breakfast) Diet Regular Basic (11/05/17 Dinner) Ed Discharge Order (11/05/17 19:45) Labs Laboratory Tests Test 11/05/17 04:10 White Blood Count 3.7 TH/MM3 Red Blood Count 4.95 MIL/MM3 Hemoglobin 13.5 GM/DL Hematocrit 41.2 % Mean Corpuscular Volume 83.2 FL Mean Corpuscular Hemoglobin 27.2 PG Mean Corpuscular Hemoglobin Concent 32.7 % Red Cell Distribution Width 24.5 % Platelet Count 192 TH/MM3 Mean Platelet Volume 9.8 FL Neutrophils (%) (Auto) 45.6 % Lymphocytes (%) (Auto) 42.5 % Monocytes (%) (Auto) 7.3 % Eosinophils (%) (Auto) 3.9 % Basophils (%) (Auto) 0.7 % Neutrophils # (Auto) 1.7 TH/MM3 Lymphocytes # (Auto) 1.6 TH/MM3 Monocytes # (Auto) 0.3 TH/MM3 Eosinophils # (Auto) 0.1 TH/MM3 Basophils # (Auto) 0.0 TH/MM3 CBC Comment AUTO DIFF Differential Comment AUTO DIFF CONFIRMED Platelet Estimate NORMAL Platelet Morphology Comment NORMAL Ovalocytes 1+ Keratocytes OCC Blood Urea Nitrogen 6 MG/DL Creatinine 0.67 MG/DL Random Glucose 96 MG/DL Total Protein 8.0 GM/DL Albumin 4.3 GM/DL Calcium Level 8.7 MG/DL Alkaline Phosphatase 93 U/L Aspartate Amino Transf (AST/SGOT) 18 U/L Alanine Aminotransferase (ALT/SGPT) 18 U/L Total Bilirubin 0.1 MG/DL Sodium Level 144 MEQ/L Potassium Level 3.4 MEQ/L Chloride Level 109 MEQ/L Carbon Dioxide Level 22.9 MEQ/L Anion Gap 12 MEQ/L Estimat Glomerular Filtration Rate 102 ML/MIN Thyroid Stimulating Hormone 3rd Gen 1.160 uIU/ML Urine Opiates Screen NEG Urine Barbiturates Screen NEG Urine Amphetamines Screen NEG Urine Benzodiazepines Screen NEG Urine Cocaine Screen NEG Urine Cannabinoids Screen POS Ethyl Alcohol Level 166 MG/DL MDM Medical Decision Making Medical Screen Exam Complete: Yes Emergency Medical Condition: Yes Medical Record Reviewed: Yes Interpretation(s) Laboratory Tests Test 11/05/17 04:10 White Blood Count 3.7 TH/MM3 Red Blood Count 4.95 MIL/MM3 Hemoglobin 13.5 GM/DL Hematocrit 41.2 % Mean Corpuscular Volume 83.2 FL Mean Corpuscular Hemoglobin 27.2 PG Mean Corpuscular Hemoglobin Concent 32.7 % Red Cell Distribution Width 24.5 % Platelet Count 192 TH/MM3 Mean Platelet Volume 9.8 FL Neutrophils (%) (Auto) 45.6 % Lymphocytes (%) (Auto) 42.5 % Monocytes (%) (Auto) 7.3 % Eosinophils (%) (Auto) 3.9 % Basophils (%) (Auto) 0.7 % Neutrophils # (Auto) 1.7 TH/MM3 Lymphocytes # (Auto) 1.6 TH/MM3 Monocytes # (Auto) 0.3 TH/MM3 Eosinophils # (Auto) 0.1 TH/MM3 Basophils # (Auto) 0.0 TH/MM3 CBC Comment AUTO DIFF Blood Urea Nitrogen 6 MG/DL Creatinine 0.67 MG/DL Random Glucose 96 MG/DL Total Protein 8.0 GM/DL Albumin 4.3 GM/DL Calcium Level 8.7 MG/DL Alkaline Phosphatase 93 U/L Aspartate Amino Transf (AST/SGOT) 18 U/L Alanine Aminotransferase (ALT/SGPT) 18 U/L Total Bilirubin 0.1 MG/DL Sodium Level 144 MEQ/L Potassium Level 3.4 MEQ/L Chloride Level 109 MEQ/L Carbon Dioxide Level 22.9 MEQ/L Anion Gap 12 MEQ/L Estimat Glomerular Filtration Rate 102 ML/MIN Thyroid Stimulating Hormone 3rd Gen 1.160 uIU/ML Urine Opiates Screen NEG Urine Barbiturates Screen NEG Urine Amphetamines Screen NEG Urine Benzodiazepines Screen NEG Urine Cocaine Screen NEG Urine Cannabinoids Screen POS Ethyl Alcohol Level 166 MG/DL Differential Diagnosis MDM: High Differential diagnoses: Schizophrenia, schizoaffective disorder, bipolar, anxiety, depression, adjustment reaction, mood disorder NOS, ODD, depressive disorder NOS, dementia, dementia with agitation, psychosis NOS, substance induced mood disorder, DMDD, Asperger syndrome, infection,electrolyte abnormality, malingering. Narrative Course Mental health screening discussed with the patient. Psychiatric screen ordered. The patient has been medically cleared. This medical clearance for psychiatric admission. Patient has been seen by the psychiatric nurse practitioner. The patient's Laurent act has been lifted. She does not feel that the patient is acutely suicidal homicidal. She does not feel the patient meets inpatient criteria. He feels that the patient would benefit from outpatient treatment. The patient' s Laurent act is lifted and she is discharged. Diagnosis Primary Impression: Medical clearance for psychiatric admission Patient Instructions: General Instructions Additional Instructions: Rest. Follow-up with the recommendations of the psych screener. Med/Other Pt SpecificInfo: No Meds Exist/No RX given Disposition: 01 DISCHARGE HOME Condition: Stable Kaiden Diana Nov 05, 2017 04:35
[2017-11-05 04:40] LABS: AUTOMATED NEUTROPHIL # 1.7 TH/MM3 (1.8-7.7); BASOPHIL % 0.7 % (0.0-2.0); EOSINOPHIL # 0.1 TH/MM3 (0-0.4); EOSINOPHIL % 3.9 % (0.0-4.0); HEMATOCRIT 41.2 % (35.0-46.0); HEMOGLOBIN 13.5 GM/DL (11.6-15.3); LYMPH % 42.5 % (9.0-44.0); LYMPHOCYTE # 1.6 TH/MM3 (1.0-4.8); MEAN CELL VOLUME 83.2 FL (80.0-100.0); MEAN CORPUSCULAR HEMOGLOBIN 27.2 PG (27.0-34.0); MEAN CORPUSCULAR HGB CONC 32.7 % (32.0-36.0); MEAN PLATELET VOLUME 9.8 FL (7.0-11.0); MONO % 7.3 % (0.0-8.0); MONOCYTE # 0.3 TH/MM3 (0-0.9); NEUT % 45.6 % (16.0-70.0); PLATELET COUNT 192 TH/MM3 (150-450); RED BLOOD COUNT 4.95 MIL/MM3 (4.00-5.30); RED CELL DISTRIBUTION WIDTH 24.5 % (11.6-17.2); WHITE BLOOD COUNT 3.7 TH/MM3 (4.0-11.0)
[2017-11-05 04:54] VITALS: BP 122/71; PULSE 85; RESP 15; TEMP 98.1; O2SAT 98
[2017-11-05 05:02] LABS: ALBUMIN 4.3 GM/DL (3.4-5.0); ALT (GPT) 18 U/L (10-53); AST (GOT) 18 U/L (15-37); BICARBONATE 22.9 MEQ/L (21.0-32.0); BLOOD UREA NITROGEN 6 MG/DL (7-18); CALCIUM 8.7 MG/DL (8.5-10.1); CHLORIDE 109 MEQ/L (98-107); CREATININE 0.67 MG/DL (0.50-1.00); GLOMERULAR FILTRATION RATE 102 ML/MIN (>89); GLUCOSE,RANDOM 96 MG/DL (74-106); SODIUM (NA) 144 MEQ/L (136-145)
[2017-11-05 05:12] LABS: ALKALINE PHOSPHATASE 93 U/L (45-117); TOTAL BILIRUBIN ADULT 0.1 MG/DL (0.2-1.0)
[2017-11-05 05:41] LABS: OVALOCYTES 1+ (NORMAL)
[2017-11-05 05:43] LABS: KERATOCYTES OCC (NORMAL)
[2017-11-05 07:50] VITALS: BP 99/53; PULSE 86; RESP 16; TEMP 98.5; O2SAT 96
[2017-11-05 14:00] VITALS: BP 93/50; PULSE 83; RESP 18; O2SAT 99
[2017-11-05 18:09] VITALS: BP 106/71; PULSE 86; RESP 18; O2SAT 99
--- NOTE | 2017-11-05 19:29 | PD ---
History of Present Illness Chief Complaint: Alcohol/Drug Intoxication Time Seen by Provider: 19:00 Travel History International Travel<30 Days: No Contact w/Intl Traveler<30days: No Known affected area: No Legal Status Legal Status: Laurent Act Laurent Act Signed By: [place] [employer] Laurent Act Comment: 2017 @ 0117 History of Present Illness: History of Present Illness HPI 32-year-old white female with history of depression, alcohol abuse presents emergency department under Laurent act by PD. Patient admits that she had been drinking during the daytime and presented with blood alcohol level of 166. She was involved in an argument with her fianc and then she called the police because she felt she needed some time away from her environment. Upon the police first contact with her they did not place her under Laurent act. Yet the patient told her 17-year-old daughter to flagged police down and they make the requests for them to bring her to the hospital. Patient did not make any attempt at harming herself. She admits that she drinks heavily approximately 4 times a month and that when she drinks she tends to do "stupid things". She denies that she is suicidal or that he she had any suicidal thoughts. She does admit to increased stressors including recent health issues, financial issues due to being on a medical leave. There is no evidence of any psychosis, no steve. She is wanting to be discharged and she is future oriented. She has an appointment on Thursday for an evaluation of an enlarged lymph no of her left breast. Patient also acknowledges that she may need to seek treatment for her alcohol use. EMR is reviewed. No previous contact with [facility] psychiatry. Toxicology is positive for cannabinoids. PFSH Past Medical History Hx Anticoagulant Therapy: Yes Arthritis: No Asthma: No Autoimmune Disease: No Anxiety: Yes Depression: Yes Heart Rhythm Problems: Yes (PVC) Cancer: No Cardiovascular Problems: No High Cholesterol: No Chemotherapy: No Chest Pain: No Congestive Heart Failure: No COPD: No Cerebrovascular Accident: No Diabetes: No Endocrine: No Gastrointestinal Disorders: Yes GERD: Yes Genitourinary: No Headaches: Yes Hiatal Hernia: No Heparin Induced Thrombocytopen: No Hypertension: No Immune Disorder: No Implanted Vascular Access Dvce: Yes Kidney Stones: No Musculoskeletal: Yes Neurologic: Yes Psychiatric: Yes Reproductive: Yes (PCOS) Respiratory: Yes (B/L PE) Immunizations Current: Yes Migraines: Yes Radiation Therapy: No Renal Failure: No Seizures: No Sickle Cell Disease: No Sleep Apnea: No Thyroid Disease: No Ulcer: No Tetanus Vaccination: Unknown Influenza Vaccination: Yes ?: Not Ovarian Cysts: Yes (PCOS) Tubal Ligation: Yes Past Surgical History Abdominal Surgery: No AICD: No Arteriovenous Shunt: No Body Medical Devices: MARKER IN RIGHT BREAST Cardiac Surgery: No Section: Yes (2X) Ear Surgery: No Endocrine Surgery: No Eye Surgery: No Genitourinary Surgery: No Gynecologic Surgery: Yes (, TUBAL LIGATION) Hysterectomy: No Insulin Pump: No Joint Replacement: No Neurologic Surgery: No Oral Surgery: No Pacemaker: No Thoracic Surgery: No Other Surgery: Yes Psychiatric History Psychiatric History Hx Psychiatric Treatment: DEPRESSION at age 13 years she overdosed on pills. And was treated for depression. Most recently her PCP has prescribed Zoloft which she stated is helpful. History of Inpatient Treatment: No Guns or firearms in home: No Social History Single, mother of 5 children ranging in ages from 17-6 years old. Currently lives with her children and her fianc. She works as a [employer] and has done so for the past 10 years. Hx Alcohol Use: Yes (socially) Hx Tobacco Use: Yes Hx Substance Use: Yes Substance Use Type: Alcohol, Marijuana Hx of Substance Use Treatment: No Family Psychiatric History Negative Allergies-Medications (Allergen,Severity, Reaction): Coded Allergies: No Known Allergies (Unverified , 11/05/17) Reported Meds & Prescriptions Reported Meds & Active Scripts Active Eliquis (Apixaban) 2.5 Mg Tab 2.5 Mg PO BID 30 Days Reported Metoprolol Tartrate 25 Mg Tab 12.5 Mg PO BID Sertraline (Sertraline HCl) 100 Mg Tab 100 Mg PO DAILY Omeprazole 40 Mg Cap 40 Mg PO DAILY Metformin (Metformin HCl) 500 Mg Tab 500 Mg PO DAILY With a meal Review of Systems Psychiatric: COMPLAINS OF: Depression Except as stated in HPI: all other systems reviewed are Neg Mental Status Examination Appearance: Appropriate Consciousness: Alert Orientation: x4 Motor Activity: Normal gait Speech: Unremarkable Language: Adequate Fund of Knowledge: Adequate Attention and Concentration: Adequate Memory: Unremarkable Mood: Appropriate, Sad Affect: Appropriate Thought Process & Associations: Intact, Logical, Goal directed Thought Content: Appropriate Hallucination Type: None Delusion Type: None Suicidal Ideation: No Suicidal Plan: No Suicidal Intention: No Homicidal Ideation: No Homicidal Plan: No Homicidal Intention: No Insight: Fair Judgment: Adequate MDM Medical Decision Making Medical Record Reviewed: Yes Assessment/Plan History of Present Illness HPI 32-year-old white female with history of depression, alcohol abuse presents emergency department under Laurent act by PD. Patient admits that she had been drinking during the daytime and presented with blood alcohol level of 166. She was involved in an argument with her fianc and then she called the police because she felt she needed some time away from her environment. Upon the police first contact with her they did not place her under Laurent act. Yet the patient told her 17-year-old daughter to flagged police down and they make the requests for them to bring her to the hospital. Patient did not make any attempt at harming herself. She admits that she drinks heavily approximately 4 times a month and that when she drinks she tends to do "stupid things". She denies that she is suicidal or that he she had any suicidal thoughts. She does admit to increased stressors including recent health issues, financial issues due to being on a medical leave. There is no evidence of any psychosis, no steve. She is wanting to be discharged and she is future oriented. The patient states that she has her children and she would not do anything to harm herself because of her boys. She is interested in receiving the resources for treatment in the community such as AA. She will also follow up with her outpatient provider and continue the Zoloft. She is advised on abstinence. Patient contracts for safety as a general safety and disposition plan and agrees to return to the ED if any changes. Patient is psychiatric clear for discharge from the ED. Orders Orders Complete Blood Count With Diff (11/05/17 04:07) Comprehensive Metabolic Panel (11/05/17 04:07) Thyroid Stimulating Hormone (11/05/17 04:07) Ed Urine Pregnancytest Poc (11/05/17 04:07) Psych Screen (11/05/17 04:07) Drug Screen, Random Urine (11/05/17 04:07) Alcohol (Ethanol) (11/05/17 04:07) Diet Regular Basic (11/05/17 Breakfast) Diet Regular Basic (11/05/17 Dinner) Results Vital Signs Date Time Temp Pulse Resp B/P (MAP) Pulse Ox O2 Delivery O2 Flow Rate FiO2 11/05/17 18:09 86 18 106/71 (83) 99 Room Air 11/05/17 14:00 83 18 93/50 (64) 99 Room Air 11/05/17 07:50 86 16 96 Room Air 11/05/17 07:50 98.5 86 16 99/53 (68) 96 Room Air 11/05/17 04:54 98.1 85 15 122/71 (88) 98 Room Air 11/05/17 04:30 98.3 90 12 123/77 (92) 100 Laboratory Tests Test 11/05/17 04:10 White Blood Count 3.7 Red Blood Count 4.95 Hemoglobin 13.5 Hematocrit 41.2 Mean Corpuscular Volume 83.2 Mean Corpuscular Hemoglobin 27.2 Mean Corpuscular Hemoglobin Concent 32.7 Red Cell Distribution Width 24.5 Platelet Count 192 Mean Platelet Volume 9.8 Neutrophils (%) (Auto) 45.6 Lymphocytes (%) (Auto) 42.5 Monocytes (%) (Auto) 7.3 Eosinophils (%) (Auto) 3.9 Basophils (%) (Auto) 0.7 Neutrophils # (Auto) 1.7 Lymphocytes # (Auto) 1.6 Monocytes # (Auto) 0.3 Eosinophils # (Auto) 0.1 Basophils # (Auto) 0.0 CBC Comment AUTO DIFF Differential Comment AUTO DIFF CONFIRMED Platelet Estimate NORMAL Platelet Morphology Comment NORMAL Ovalocytes 1+ Keratocytes OCC Blood Urea Nitrogen 6 Creatinine 0.67 Random Glucose 96 Total Protein 8.0 Albumin 4.3 Calcium Level 8.7 Alkaline Phosphatase 93 Aspartate Amino Transf (AST/SGOT) 18 Alanine Aminotransferase (ALT/SGPT) 18 Total Bilirubin 0.1 Sodium Level 144 Potassium Level 3.4 Chloride Level 109 Carbon Dioxide Level 22.9 Anion Gap 12 Estimat Glomerular Filtration Rate 102 Thyroid Stimulating Hormone 3rd Gen 1.160 Urine Opiates Screen NEG Urine Barbiturates Screen NEG Urine Amphetamines Screen NEG Urine Benzodiazepines Screen NEG Urine Cocaine Screen NEG Urine Cannabinoids Screen POS Ethyl Alcohol Level 166 Diagnosis Primary Impression: Medical clearance for psychiatric admission Additional Impression: Alcohol abuse Psychiatrically Cleared: Yes Med/ Other Pt Specific Info: No Change to Meds, No Meds Exist/No RX given Disposition: 01 DISCHARGE HOME Condition: Stable Problem Qualifiers Tabatha Mukherjee Nov 05, 2017 19:29
== END 2017-11-05 20:25 | disposition home or self-care (01) ==
LOC: NEPD 03:55 → NEPJ 20:25
DX: F10.10 Alcohol abuse, uncomplicated (principal); Y90.6 Blood alcohol level of 120-199 mg/100 ml; F12.90 Cannabis use, unspecified, uncomplicated; D64.9 Anemia, unspecified; E28.2 Polycystic ovarian syndrome; F32.9 Major depressive disorder, single episode, unspecified; K21.9 Gastro-esophageal reflux disease without esophagitis; N93.8 Other specified abnormal uterine and vaginal bleeding; Z86.718 Personal history of other venous thrombosis and embolism; Z72.0 Tobacco use; Z79.01 Long term (current) use of anticoagulants; Z79.899 Other long term (current) drug therapy
CPT/HCPCS: 80053; 80307; 84443; 84703; 85025; 99283